=== PATIENT | female | born 1960 | race Caucasian/White ===

== ENCOUNTER → 2021-12-15 10:21 | Outpatient (BNVA) | payer MEDICARE, OTHER, SELFPAY | PROVIDERS: Referring Provider Family Medicine Adult Medicine; Visit Provider Obstetrics & Gynecology | DX: N89.8 Other specified noninflammatory disorders of vagina (principal) | CPT/HCPCS: 87481; 87512; 87798; 87799 ==

== ENCOUNTER → 2022-03-09 10:34 | Outpatient (BNVA) | payer OTHER, SELFPAY | PROVIDERS: PCP Family Medicine Adult Medicine; Visit Provider Family Medicine Adult Medicine | DX: E78.5 Hyperlipidemia, unspecified (principal); F41.9 Anxiety disorder, unspecified; F32.A Depression, unspecified; Z78.9 Other specified health status; J01.20 Acute ethmoidal sinusitis, unspecified | CPT/HCPCS: 80053; 80061; 83036; 84443; 85025 ==

== ENCOUNTER → 2022-04-26 11:05 | Outpatient (BNVA) | payer OTHER, SELFPAY | PROVIDERS: PCP Family Medicine Adult Medicine; Visit Provider Family Medicine Adult Medicine | DX: R35.0 Frequency of micturition (principal); R32 Unspecified urinary incontinence; F41.9 Anxiety disorder, unspecified; F32.A Depression, unspecified; R73.03 Prediabetes; E78.5 Hyperlipidemia, unspecified; N18.2 Chronic kidney disease, stage 2 (mild) | CPT/HCPCS: 81000 ==

== ENCOUNTER → 2022-05-11 08:15 | Outpatient (BNVA) | payer OTHER, SELFPAY | PROVIDERS: PCP Family Medicine Adult Medicine; Visit Provider Obstetrics & Gynecology | DX: R32 Unspecified urinary incontinence (principal); R63.5 Abnormal weight gain | CPT/HCPCS: 81000; 84443; 87086 ==

== ENCOUNTER → 2022-06-12 08:43 | Outpatient (BNVA) | payer OTHER, SELFPAY | PROVIDERS: PCP Family Medicine Adult Medicine; Visit Provider Obstetrics & Gynecology | DX: R63.5 Abnormal weight gain (principal) | CPT/HCPCS: 84443 ==

== ENCOUNTER 2022-06-15 09:13 | Outpatient (CLI) | payer MEDICARE, SELFPAY ==
--- NOTE | 2022-06-15 09:42 | MR_ITS ---
WS: [id number] MRI BRAIN WITH HIGH-RESOLUTION IMAGING THROUGH THE INTERNAL AUDITORY CANALS WITHOUT AND WITH CONTRAST HISTORY: SENSORINEURAL HEARING LOSS, BILATERAL COMPARISON: None available. TECHNIQUE: Multiplanar, multisequence imaging is performed through the brain. Additional 3 mm imaging performed in multiple planes through the internal auditory canal. Postcontrast imaging with 15 ml's of ProHance. No acute intracranial hemorrhage, midline shift, edema or mass effect. No significant atrophy and no prior infarct. Perivascular space along the inferior LEFT basal ganglia . No prior infarct. No hemorrhage. Ventricles and extra-axial spaces are normal. No inferior displacement of cerebellar tonsils. Clivus and pituitary gland are normal. Internal and external auditory canals: Unremarkable. Cranial nerves VII and VIII complexes: Unremarkable. No enhancement or mass. Cerebellopontine angles: Normal. Paranasal sinuses: Normal. Mastoid air cells: Normal. Calvarium and scalp: Normal. Visualized [place] and dural venous sinuses demonstrate no abnormality. MR/MR iac's wo/w con* [id number] IMPRESSION: Normal MRI IACs.
== END 2022-06-15 09:14 | disposition home or self-care (01) ==
PROVIDERS: PCP Family Medicine Adult Medicine; Visit Provider Otolaryngology
DX: H90.3 Sensorineural hearing loss, bilateral (principal); J31.0 Chronic rhinitis
CPT/HCPCS: 70553; A9579

== ENCOUNTER 2022-09-22 14:49 | Outpatient (CLI) | payer MEDICARE, MEDICAID, SELFPAY ==
--- NOTE | 2022-09-22 14:53 | MM_ITS ---
WS: [id number] BILATERAL 3D TOMOSYNTHESIS DIGITAL SCREENING MAMMOGRAPHY WITH CAD CLINICAL INFORMATION: SCREEN HISTORY: Screening mammogram. No current complaints. COMPARISON: 2020 TECHNIQUE: Bilateral CC and MLO views. FINDINGS: Scattered fibroglandular densities bilaterally. No suspicious focal mass, asymmetry, calcifications, or architectural distortion. No evidence of malignancy. Lucent centered calcification RIGHT breast. V ascular calcification. A few incidental punctate calcifications. MM/[place] [id number] IMPRESSION: BI-RADS: 2-Benign FOLLOW UP: 1 Year Follow-up Recommend return to annual screening mammography.
== END 2022-09-22 14:50 | disposition home or self-care (01) ==
LOC: RAD 14:49
PROVIDERS: Visit Provider Family Medicine Adult Medicine
DX: Z12.31 Encounter for screening mammogram for malignant neoplasm of breast (principal)
CPT/HCPCS: 77063; 77067

== ENCOUNTER 2022-12-18 06:58 | Outpatient (CLI) | payer MEDICARE, SELFPAY ==
--- NOTE | 2022-12-18 | CT_ITS ---
WS: [id number] CT NECK TECHNIQUE: Contrast-enhanced CT of the neck with coronal and sagittal reformatted images. CLINICAL INFORMATION: LOCALIZED SWELLING, MASS, LUMP COMPARISON: None. DLP: 180.[address] scans at [facility] use at least one of these dose optimization techniques: automated e xposure control; mA and/or kV adjustment per patient size (includes targeted exams where dose is matc hed to clinical indication); or iterative reconstruction. FINDINGS: Palpable marker overlying tail RIGHT parotid gland. Deep to the palpable marker there is a heterogene ously enhancing lobulated intraparotid lesion measuring 2.7 x 1.9 cm with lobulated peripheral and in ternal septal enhancement. Findings suspicious for parotid neoplasm. Recommend ENT consultation. LEFT parotid gland is normal. Tongue base is normal in appearance. Dental artifact degrades some imag es tongue base. Normal parapharyngeal fat. Normal submandibular glands. Normal posterior nasopharynx. Normal parapharyngeal fat. No evidence of supraglottic or glottic mass. Ballooning of the LEFT laryn geal ventricle suspicious for vocal cord paralysis. Subglottic airway is normal. Thyroid gland is normal. Lung apices are well aerated. Mild spondylitic changes cervical spine. No ce rvical lymphadenopathy. CT/CT neck w con* [id number] IMPRESSION: 1. Multilobulated lesion deep to the palpable marker involving the tail RIGHT parotid gland measuring 1.9 x 2.7 cm suspicious for parotid neoplasm. Recommend further evaluation with ENT consultation. 2. Ballooning of the LEFT laryngeal ventricle suspicious for cord paralysis. 3. Otherwise no evidence of supraglottic or glottic mass. 4. No cervical lymphadenopathy. A few elongated RIGHT cervical lymph nodes teresita suring 6 to 7 mm in short axis dimension.
[2022-12-18] MEDS: iohexol 350 mg/mL 500 mL Btl (per mL) IV (09:50)
== END 2022-12-18 06:59 | disposition home or self-care (01) ==
LOC: RAD 06:59
PROVIDERS: Visit Provider Otolaryngology
DX: R22.1 Localized swelling, mass and lump, neck (principal); D37.030 Neoplasm of uncertain behavior of the parotid salivary glands
CPT/HCPCS: 70491; Q9967

== ENCOUNTER 2023-01-23 14:23 | Outpatient (CLI) | payer MEDICARE, MEDICAID, SELFPAY ==
--- NOTE | 2023-01-23 15:02 | ECG_ITS ---
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 Measurements Intervals [place] Rate: 85 P: 54 NC: 153 QRS: 19 QRSD: 88 T: 58 QT: 335 QTc: 398 Interpretive Statements SINUS RHYTHM POSSIBLE LEFT ATRIAL ENLARGEMENT [-0.1mV P-WAVE IN V1/V2] NONSPECIFIC T-WAVE ABNORMALITY No previous ECG available for comparison Electronically Signed On 01-24-2023 16:18:28 [employer]OCK ASSOCIATE by Neel Boyd M.D. [email or web address]
[2023-01-23 16:37] LABS: Basophils # 0.1 10^3/uL (0.0-0.1); Eosinophils # 0.6 10^3/uL (0.0-0.8); Eosinophils % 9.4 %; Hematocrit 40.8 % (37.0-47.0); Hemoglobin 13.4 g/dL (11.5-15.3); Lymphocytes # 2.6 10^3/uL (0.8-4.8); Lymphocytes % 40.7 %; Mean Corpuscular HGB Conc 32.8 g/dL (30.0-36.0); Mean Corpuscular Hemoglobin 30.5 pg (28.0-34.0); Mean Corpuscular Volume 92.7 fl (81-99); Monocytes # 0.6 10^3/uL (0.2-0.9); Monocytes % 9.3 %; Neutrophils # 2.46 10^3/uL (1.8-7.7); Neutrophils % 39.3 %; Nucleated Red Blood Cells % 0 %; Platelet Count 423 10^3/cmm (130-400); Red Cell Distribution Width 14.3 % (12.1-15.1); White Blood Count 6.3 10^3/uL (4.0-10.0)
[2023-01-23 17:34] LABS: Blood Urea Nitrogen 12 mg/dL (8-23); Calcium 9.3 mg/dL (8.5-10.5); Carbon Dioxide 26 mmol/L (22-29); Chloride 101 mmol/L (98-107); Glomerular Filtration Rate 63.7 mL/min (90-130); Glucose 97 mg/dL (65-115); Osmolality Calculated 288 mOsm/kg (285-295); Sodium 139 mmol/L (136-145)
== END 2023-01-23 14:24 | disposition home or self-care (01) ==
PROVIDERS: Visit Provider Specialist
DX: Z01.810 Encounter for preprocedural cardiovascular examination (principal)
CPT/HCPCS: 36415; 80048; 85025; 93005

== ENCOUNTER 2023-02-06 13:02 | Observation (INO) | payer MEDICARE, SELFPAY ==
[2023-02-05 12:04] VITALS: BMI 26.2
[2023-02-06] VITALS (16 sets, daily range): BP systolic 105–133; BP diastolic 57–78; PULSE 73–81; RESP 13–20; TEMP 36.1–36.8; O2SAT 94–99
[2023-02-06] MEDS: sodium chloride 0.9% 1,000 ML 30 ML IV (07:35)
[2023-02-06] MEDS: HYDROmorphone 1 mg/mL INJ 1 mL 0.5 MG IVP (07:52)
--- NOTE | 2023-02-06 08:17 | ANES.PREANE2 ---
Pre-Anesthetic Assessment Height/Weight: Height 1.78 m Weight 83.007 kg Temp Pulse Resp BP Pulse Ox O2 Del Method 97.2 F L 81 16 133/60 97 02/06/23 07:30 02/06/23 07:30 02/06/23 07:52 02/06/23 07:30 02/06/23 07:52 02/06/23 07:30 Operation Date: 02/06/23 08:40 Proposed Procedures p Parotidectomy [id number],R22.1(Right) - Nick Sevilla MD s PossibleNeck Dissection(Right) - Nick Sevilla MD s possible abdominal fat graft harvest(Right) - Nick Sevilla MD Familial anesthetic complications: none Was Beta Saira taken within 24 hours: N/A Was Clonidine taken within 24 hours: N/A Last intake: Intake Last Liquid Date 02/05/23 Last Liquid Time 23:00 Last Solid Date 02/05/23 Last Solid Time 23:00 Social No alcohol and No tobacco Exam alert, oriented x 3, clear to auscultation bilaterally and regular rate & rhythm Airway Submandibular: within normal limits Cervical ROM: within normal limits Mallampati: Class II Dentition: full Chronic Renal Insufficiency GI Gastroesophageal Reflux Disease Metabolic Hyperlipidemia and Thyroid Disease [facility] [place] Fibromyalgia and Lower Back Pain Neuropsych Anxiety, Depression and Headache Anesthetic Plan ASA status: 3 Anesthesia: General Medications/Allergies Home Medications Medication Instructions Recorded Confirmed Last Taken Type estradiol 1 mg tablet 1 mg PO DAILY Post menopausal 03/10/22 02/06/23 02/05/23 Rx symptoms #90 tabs ibuprofen 800 mg tablet 800 mg PO TID PRN body pain #270 03/10/22 02/06/23 01/28/23 Rx tabs melatonin 10 mg tablet 15 mg PO DAILY sleep #90 tabs 03/10/22 02/06/23 02/04/23 Rx levothyroxine 75 mcg capsule 75 mcg PO DAILY #90 caps 05/11/22 02/06/23 02/06/23 05:30 Rx mirabegron 25 mg tablet,extended 25 mg PO DAILY #30 tabs 08/23/22 02/06/23 02/05/23 Rx release 24 hr (Myrbetriq) bupropion HCl 300 mg 24 hr tablet, 300 mg PO [facility] #90 09/19/22 02/06/23 02/06/23 05:30 Rx extended release tabs gabapentin 800 mg tablet 800 mg PO QID Chronic body pain 09/19/22 02/06/23 02/06/23 05:30 Rx #360 tabs omeprazole 20 mg capsule,delayed 20 mg PO DAILY chronic GERD #90 09/19/22 02/06/23 02/05/23 Rx release caps venlafaxine 75 mg capsule,extended 75 mg PO BID Mental Health #180 09/19/22 02/06/23 02/06/23 05:30 Rx release 24 hr caps naltrexone 50 mg tablet 50 mg PO DAILY Opioid prevention 10/23/22 02/06/23 02/05/23 Rx 90 days #90 tabs progesterone micronized 100 mg 100 mg PO QAM post menopausal 90 01/01/23 02/06/23 02/05/23 Rx capsule days #90 caps lamotrigine 100 mg tablet 100 mg PO BID Mental Health 02/05/23 02/06/23 02/05/23 History (Lamictal) lubiprostone 24 mcg capsule 24 mcg PO BID 02/05/23 02/06/23 02/05/23 History Allergies Allergy/AdvReac Type Severity Reaction Status Date / Time Iodinated Contrast Media Allergy ALGY-Rash Verified 02/06/23 07:24 Current Medications Generic Name Dose Route Start Last Admin Trade Name Freq PRN Reason Stop Dose Admin Hydromorphone HCl 0.5 mg 02/06/23 07:09 02/06/23 07:52 Hydromorphone 1 Mg/Ml Inj 1 Ml IVP 0.5 mg ONCE PRN Administration For preop pain/anxiety Sodium Chloride 1,000 mls @ 30 mls/hr 02/06/23 07:15 02/06/23 07:35 Sodium Chloride 0.9% IV 02/07/23 07:14 30 mls/hr .Q24H TABITHA Administration PFSH Anesthesia Medical History (Updated 12/05/22 @ 16:17 by Jam Zeng MD) Allergic rhinitis due to allergen Anxiety and depression Chronic GERD CKD (chronic kidney disease), stage II COVID-19 vaccine administered Covid vaccine on 02/14/2021 and second on 03/14/2021 Fibromyalgia Hx of migraines Hyperlipidemia Hypothyroidism IBS (irritable bowel syndrome) Menopause Prediabetes PTSD (post-traumatic stress disorder) Urinary incontinence Surgical History History of endometrial ablation Hx of tubal ligation Family History Mother Cancer colon Grandmother Cancer Maternal--colon Stroke Paternal Breast cancer Paternal Father Cancer colon CAD (coronary artery disease) Diabetes Daughter No problems noted. Family/Other Breast cancer Paternal Aunt Denies family history of Clotting disorder Hyperlipidemia Chronic kidney disease (CKD) Bleeding disorder Hypertension Thyroid disease Social History Smoking and tobacco status: never smoked Alcohol intake: never Marital status: Single Current occupational status: disabled Data Anesthesia Cardiac Studies: No Data to Display
--- NOTE | 2023-02-06 08:57 | W.PM.OPSUD ---
Surgery/Procedure H&P Update DATE OF PROCEDURE: February 06, 2023 DATE H&P PERFORMED: 01/22/23 PRIMARY INDICATION FOR PROCEDURE: Right parotid mass PLANNED PROCEDURE: Operation Date: 02/06/23 08:40 Proposed Procedures p Parotidectomy [id number],R22.1(Right) - Nick Sevilla MD s PossibleNeck Dissection(Right) - Nick Sevilla MD s possible abdominal fat graft harvest(Right) - Nick Sevilla MD
--- NOTE | 2023-02-06 09:02 | ANES.PREANE2 ---
Pre-Anesthetic Assessment Height/Weight: Height 1.78 m Weight 83.007 kg Temp Pulse Resp BP Pulse Ox O2 Del Method 97.2 F L 81 16 133/60 97 02/06/23 07:30 02/06/23 07:30 02/06/23 07:52 02/06/23 07:30 02/06/23 07:52 02/06/23 07:30 Operation Date: 02/06/23 08:40 Proposed Procedures p Parotidectomy 54878,[id number],R22.1(Right) - Nick Sevilla MD s PossibleNeck Dissection(Right) - Nick Sevilla MD s possible abdominal fat graft harvest(Right) - Nick Sevilla MD Familial anesthetic complications: none Was Beta Saira taken within 24 hours: N/A Was Clonidine taken within 24 hours: N/A Last intake: Intake Last Liquid Date 02/05/23 Last Liquid Time 23:00 Last Solid Date 02/05/23 Last Solid Time 23:00 Social No alcohol and No tobacco Exam alert, oriented x 3, clear to auscultation bilaterally and regular rate & rhythm Airway Submandibular: within normal limits Cervical ROM: within normal limits Mallampati: Class II Dentition: full GI Gastroesophageal Reflux Disease Metabolic Thyroid Disease [facility] [place] Fibromyalgia and Lower Back Pain Neuropsych Anxiety and Depression Medications/Allergies Home Medications Medication Instructions Recorded Confirmed Last Taken Type estradiol 1 mg tablet 1 mg PO DAILY Post menopausal 03/10/22 02/06/23 02/05/23 Rx symptoms #90 tabs ibuprofen 800 mg tablet 800 mg PO TID PRN body pain #270 03/10/22 02/06/23 01/28/23 Rx tabs melatonin 10 mg tablet 15 mg PO DAILY sleep #90 tabs 03/10/22 02/06/23 02/04/23 Rx levothyroxine 75 mcg capsule 75 mcg PO DAILY #90 caps 05/11/22 02/06/23 02/06/23 05:30 Rx mirabegron 25 mg tablet,extended 25 mg PO DAILY #30 tabs 08/23/22 02/06/23 02/05/23 Rx release 24 hr (Myrbetriq) bupropion HCl 300 mg 24 hr tablet, 300 mg PO [facility] Mental health #90 09/19/22 02/06/23 02/06/23 05:30 Rx extended release tabs gabapentin 800 mg tablet 800 mg PO QID Chronic body pain 09/19/22 02/06/23 02/06/23 05:30 Rx #360 tabs omeprazole 20 mg capsule,delayed 20 mg PO DAILY chronic GERD #90 09/19/22 02/06/23 02/05/23 Rx release caps venlafaxine 75 mg capsule,extended 75 mg PO BID Mental Health #180 09/19/22 02/06/23 02/06/23 05:30 Rx release 24 hr caps naltrexone 50 mg tablet 50 mg PO DAILY Opioid prevention 10/23/22 02/06/23 02/05/23 Rx 90 days #90 tabs progesterone micronized 100 mg 100 mg PO QAM post menopausal 90 01/01/23 02/06/23 02/05/23 Rx capsule days #90 caps lamotrigine 100 mg tablet 100 mg PO BID Mental Health 02/05/23 02/06/23 02/05/23 History (Lamictal) lubiprostone 24 mcg capsule 24 mcg PO BID 02/05/23 02/06/23 02/05/23 History Allergies Allergy/AdvReac Type Severity Reaction Status Date / Time Iodinated Contrast Media Allergy ALGY-Rash Verified 02/06/23 07:24 Current Medications Generic Name Dose Route Start Last Admin Trade Name Freq PRN Reason Stop Dose Admin Hydromorphone HCl 0.5 mg 02/06/23 07:09 02/06/23 07:52 Hydromorphone 1 Mg/Ml Inj 1 Ml IVP 0.5 mg ONCE PRN Administration For preop pain/anxiety Sodium Chloride 1,000 mls @ 30 mls/hr 02/06/23 07:15 02/06/23 07:35 Sodium Chloride 0.9% IV 02/07/23 07:14 30 mls/hr .Q24H TABITHA Administration PFSH Anesthesia Medical History (Updated 12/05/22 @ 16:17 by Jam Zeng MD) Allergic rhinitis due to allergen Anxiety and depression Chronic GERD CKD (chronic kidney disease), stage II COVID-19 vaccine administered Covid vaccine on 02/14/2021 and second on 03/14/2021 Fibromyalgia Hx of migraines Hyperlipidemia Hypothyroidism IBS (irritable bowel syndrome) Menopause Prediabetes PTSD (post-traumatic stress disorder) Urinary incontinence Surgical History History of endometrial ablation Hx of tubal ligation Family History Mother Cancer colon Grandmother Cancer Maternal--colon Stroke Paternal Breast cancer Paternal Father Cancer colon CAD (coronary artery disease) Diabetes Daughter No problems noted. Family/Other Breast cancer Paternal Aunt Denies family history of Clotting disorder Hyperlipidemia Chronic kidney disease (CKD) Bleeding disorder Hypertension Thyroid disease Social History Smoking and tobacco status: never smoked Alcohol intake: never Marital status: Single Current occupational status: disabled Data Anesthesia Cardiac Studies: No Data to Display
[2023-02-06] MEDS: ceFAZolin 2,000 MG in sodium chloride 0.9% (plus) 50 ML 100 MG IV ×2 (09:10→17:06)
[2023-02-06] MEDS: lidocaine-epi 1% 20 mL INJ 7 ML INJECTION (09:55)
[2023-02-06] MEDS: EPINEPHrine 1 mg/mL INJ 2 MG XX (10:03)
[2023-02-06] MEDS: ceFAZolin 1,000 mg SDV 1000 MG (10:03)
[2023-02-06] MEDS: fluorescein 1 mg Strip XX ×2 (10:46→11:16)
[2023-02-06] MEDS: thrombin 5,000 unit SDV 5000 UNIT XX (10:49)
[2023-02-06] MEDS: EPINEPHrine 1 mg/mL INJ XX (11:16)
[2023-02-06] MEDS: neomycin-poly-bacitracin oint 28 gm 1 APPLIC TOPICAL (11:53)
--- NOTE | 2023-02-06 12:43 | PM.OP ---
Operative Report Date of procedure: February 06, 2023 Pre-op diagnosis: Right parotid mass Post-op diagnosis: same Post-op findings: Right tail of parotid mass Intact facial nerve O/W Normal right parotid gland Procedure done: Right superficial parotidectomy Implants: None Specimens removed/disposition: Right parotid mass Pathology: Right parotid mass Surgeon: Nick Sevilla Inspector Heating And Refrigeration: Janet Shepard Anesthesia: General Estimated blood loss (mL): 50 IV fluids (mL): 1,800 Urine output (mL): 300 Complications: None Findings: Right tail of parotid mass Condition: stable Disposition: PACU Brief History: 62 yo wf with a h/o a right parotid mass who desires surgical therapy. Procedure: The patient was identified in preop holding area and was taken to the operating where she was placed on the table in the supine position. Anesthesia was obtained with general endotracheal anesthesia and the table was turned 180 degrees. The patient's head was turned to the left exposing the right face to the operating surgeon. At this point a modified Ashwin incision was drawn out on the patient and was injected with local anesthesia. The Nirvana nerve monitoring system was placed on the patient and the patient was then prepped and draped in the usual sterile fashion. The incision was made with a 15 blade and was carried down through subcutaneous tissues with blunt dissection. A subcutaneous flap was developed anteriorly and then a dissection began on a broad front at the anterior border of the right sternocleidomastoid muscle and the right preauricular area using bipolar cautery for hemostasis. The dissection proceeded into the deep tissues with the deepest point of the dissection at the tympanomastoid suture line. As the dissection proceeded into the deeper tissues with the Neurvana nerve monitoring hemostat, the facial nerve was identified readily and was preserved and protected and a posterior branch of the great auricular nerve was also protected and preserved. The right facial nerve was then dissected out to the pes anserinus and was dissected off of the facial nerve over the lower lower jayant of the nerve. As the dissection proceeded the branches of the facial nerve were protected and the superficial parotid along with the tail of parotid mass were removed with a combination of blunt dissection and bipolar cautery. At this point the wound was inspected for hemostasis which was found to be adequate. The mass was sent for intraoperative frozen section analysis which came back as benign. At this point the wound was reinspected for hemostasis which was found to be adequate. The wound was then irrigated with warm saline. The right facial nerve was then covered with Gelfoam soaked in thrombin and a drain was placed in the wound. At this point the cut edge of the parotid was imbricated to the anterior aspect of the sternocleidomastoid muscle. At this point the wound was closed with interrupted 4 Monocryl sutures and subcu and a running 5-0 fast-absorbing gut on the skin. The wound was then cleaned and covered with triple antibiotic ointment. At this point the procedure was terminated and control of the patient was returned to anesthesia where she underwent reversal of anesthesia and extubation and was taken to recovery in stable condition. There were no operative or anesthetic complications
--- NOTE | 2023-02-06 14:02 | ANE.PACU2 ---
Inpatient post-anesthesia follow up: Airway intact: Yes Vital signs: Temperature 98.2 F Pulse Rate 74 Respiratory Rate 14 Blood Pressure 115/68 Pulse Oximetry 97 Oxygen Delivery Me thod Room Air Oxygen Flow Rate Fraction of Inspir ed Oxygen Hydration adequate: Yes Nausea and vomiting: No Pain level: 3 Mental status: Baseline
[2023-02-06] MEDS: lactated ringers 1,000 ML 100 ML IV (15:23)
[2023-02-06] MEDS: venlafaxine ER (24HR) 75 mg Capsule PO (17:06)
[2023-02-06] MEDS: gabapentin 400 mg Capsule 800 MG PO ×2 (17:06→20:01)
[2023-02-06] MEDS: docusate sodium 100 mg Capsule PO (17:06)
[2023-02-06] MEDS: lamoTRIgine 100 mg Tablet PO (17:06)
[2023-02-06] MEDS: acetaminophen 650 mg/20.3 mL UDC PO (17:06)
--- NOTE | 2023-02-06 17:48 | P.PN_ITS ---
Subjective Subjective: The patient is a 62 yo wf who is night of surgery s/p right superficial parotidectomy. The patient reports that she is doing well and has no c/o. Medications: Reviewed: Yes Vitals/I&O/Wt Last Vital Signs Temp 97.8 F 02/06/23 16:28 Pulse 78 02/06/23 16:28 Resp 16 02/06/23 16:28 BP 128/74 02/06/23 16:28 Pulse Ox 95 02/06/23 16:28 O2 Del Method 02/06/23 16:28 02/06/23 02/06/23 02/06/23 06:59 14:59 22:59 Intake Total 2750 / 2750 Output Total 650 / 650 Balance 2100 / 2100 Weight last 48 hrs Weight 83.007 kg Physical Exam Const: COMMON NORMALS: no acute distress, average body habitus, patient orie nted x3, healthy appearing and alert GENERAL APPEARANCE: cooperative, comfortable and well kempt HENMT: COMMON NORMALS: normocephalic, atraumatic, external ears normal and Normal external nose present HEAD & SCALP: normocephalic and atraumatic FACE & SINUS: face symmetric and other (The right facial wound is intact without erythema or swelling. ) NOSE: Normal external nose present EXTERNAL EAR: Yes external ears normal Eye: COMMON NORMALS: Equal, round and reactive pupils present and conjunctivae normal CONJUNCTIVA: Yes conjunctivae normal PUPIL: Yes Equal, round and reactive pupils present Neck/C-Spine: COMMON NORMALS: full ROM and supple Resp: COMMON NORMALS: normal respiratory effort, No retractions, No use of accessory muscles and clear to auscultation bilaterally AUSCULTATION: clear to auscultation bilaterally Cardio: COMMON NORMALS: regular rate, regular rhythm and No murmurs present (Cardio) RATE: regular rate RHYTHM: regular rhythm GI: COMMON NORMALS: Normal to inspection, nondistended, normoactive bowel sounds present Extremity: COMMON NORMALS: normal to inspection Neuro: COMMON NORMALS: patient oriented x3 SENSORIUM/ORIENTATION: Yes alert Psych: APPEARANCE: Yes well kempt Urinary Catheter Management: Young: Cath Placed During This Visit: yes, but has since been removed by the nurse Urinary Catheter Date of Insertion: 02/06/23 Urinary Catheter Time of Insertion: 09:40 Date Urinary Catheter Removed: 02/06/23 Time Urinary Catheter Discontinued: 12:34 A&P Assessment and plan (1) Parotid mass: Impression: 62 yo wf who is night of surgery s/p right superficial parotidectomy who is doing well. The patient has normal right facial nerve function, and her frozen path was benign Plan: - Overnight observation - Closed suction drainage - Tylenol only for pain at the patient's request - I anticipate d/c in the am if the patient continues to do well Attestations Medical Necessity Statement*: The patient requires overnight observation of her wound and airway Coding Level of Care Code Acute Code for Chg Fwd Diagnoses Parotid mass K11.8
[2023-02-06] MEDS: famotidine 20 mg/2 mL INJ IVP (20:01)
[2023-02-07] VITALS: BP 119/64; PULSE 75; RESP 18; TEMP 36.7; O2SAT 96
[2023-02-07] MEDS: ceFAZolin 2,000 MG in sodium chloride 0.9% (plus) 50 ML 100 MG IV (00:31)
[2023-02-07] MEDS: lactated ringers 1,000 ML 100 ML IV (00:32)
[2023-02-07 04:15] VITALS: BP 112/64; PULSE 75; RESP 16; TEMP 36.6; O2SAT 97
[2023-02-07] MEDS: buPROPion XL (24 HR) 300 mg Tablet PO (05:16)
--- NOTE | 2023-02-07 05:16 | PM.PN ---
Subjective Subjective: 62 yo wf who is POD #1 s/p right superficial parotidectomy. The patient reports that she is doing well. Her pain is well managed with po Tylenol. The patient is taking po well, and is o/w without c/o. Medications: Reviewed: Yes Vitals/I&O/Wt Last Vital Signs Temp 97.8 F 02/07/23 04:15 Pulse 75 02/07/23 04:15 Resp 16 02/07/23 04:15 BP 112/64 02/07/23 04:15 Pulse Ox 97 02/07/23 04:15 O2 Del Method 02/07/23 04:15 02/06/23 02/06/23 02/07/23 14:59 22:59 06:59 Intake Total 2750 / 2750 290 / 3040 965 / 4005 Output Total 650 / 650 20 / 670 Balance 2100 / 2100 270 / 2370 965 / 3335 Weight last 48 hrs Weight 83.007 kg Physical Exam Const: COMMON NORMALS: no acute distress, patient oriented x3 and alert GENERAL APPEARANCE: cooperative HENMT: COMMON NORMALS: normocephalic, atraumatic and Normal external nose present HEAD & SCALP: normocephalic and atraumatic FACE & SINUS: other (The right neck wound is intact and without swelling.) NOSE: Normal external nose present Eye: COMMON NORMALS: Equal, round and reactive pupils present, conjunctivae normal and no scleral icterus CONJUNCTIVA: Yes conjunctivae normal PUPIL: Yes Equal, round and reactive pupils present Neck/C-Spine: COMMON NORMALS: full ROM, no lymphadenopathy and supple GENERAL: Yes trachea midline Resp: COMMON NORMALS: No retractions, No use of accessory muscles and clear to auscultation bilaterally AUSCULTATION: clear to auscultation bilaterally Cardio: COMMON NORMALS: regular rate, regular rhythm and No murmurs present (Cardio) RATE: regular rate RHYTHM: regular rhythm GI: COMMON NORMALS: Normal to inspection, nondistended, normoactive bowel sounds present Extremity: COMMON NORMALS: normal to inspection Neuro: COMMON NORMALS: patient oriented x3 and CN's II-XII intact bilaterally SENSORIUM/ORIENTATION: Yes alert CRANIAL NERVES: Yes CN VII (facial) Urinary Catheter Management: Young: Cath Placed During This Visit: yes, but has since been removed by the nurse Urinary Catheter Date of Insertion: 02/06/23 Urinary Catheter Time of Insertion: 09:40 Date Urinary Catheter Removed: 02/06/23 Time Urinary Catheter Discontinued: 12:34 A&P Assessment and plan (1) Parotid mass: Impression: POD #1 s/p right superficial parotidectomy doing well with benign frozen section. Plan: - D/C to home - Continue closed suction drainage at home - Apply ISAÍAS to right facial wound TID - Keep wound dry for 48 hours post op - Wound care instructions given - F/U in Dr. Seivlla's office on 02/09/23 @ 13:00 - Contact Dr. Sevilla for any problems - Regular diet - Resume all preop meds - The patient wants to take OTC Tylenol only for pain Attestations Medical Necessity Statement*: The patient required overnight observation of her wound and airway. Coding Level of Care Code Acute Code for Chg Fwd Diagnoses Parotid mass K11.8
[2023-02-07] MEDS: acetaminophen 650 mg/20.3 mL UDC PO (05:20)
[2023-02-07] MEDS: famotidine 20 mg/2 mL INJ IVP (07:41)
[2023-02-07] MEDS: gabapentin 400 mg Capsule 800 MG PO (07:51)
[2023-02-07] MEDS: levothyroxine 75 mcg Tablet PO (07:51)
[2023-02-07] MEDS: docusate sodium 100 mg Capsule PO (07:51)
[2023-02-07] MEDS: venlafaxine ER (24HR) 75 mg Capsule PO (07:51)
[2023-02-07] MEDS: lamoTRIgine 100 mg Tablet PO (07:52)
[2023-02-07 08:00] VITALS: BP 143/75; PULSE 74; RESP 16; TEMP 36.5; O2SAT 97
== END 2023-02-07 10:17 | disposition home or self-care (01) ==
LOC: MEDSURG 13:03
PROVIDERS: Admitting Provider Specialist; Visit Provider Specialist
PROC: (CPT 42410; principal; 2023-02-06 08:30)
DX: D11.0 Benign neoplasm of parotid gland (principal); K11.8 Other diseases of salivary glands; K21.9 Gastro-esophageal reflux disease without esophagitis; E78.5 Hyperlipidemia, unspecified; M79.7 Fibromyalgia; E03.9 Hypothyroidism, unspecified; N18.9 Chronic kidney disease, unspecified
CPT/HCPCS: 42410; 12345; 51702; 88307; 88331; 94664; G0378; J0131; J0171; J0330; J0690; J1100; J1170; J2370; J2405; J2704; J3010; J3490; J7030; J7120

== ENCOUNTER → 2023-05-07 12:01 | Outpatient (BNVA) | payer MEDICARE, SELFPAY | PROVIDERS: PCP Family Medicine Adult Medicine; Visit Provider Registered Nurse Neonatal Intensive Care | DX: M54.50 Low back pain, unspecified (principal); M54.30 Sciatica, unspecified side; K21.9 Gastro-esophageal reflux disease without esophagitis | CPT/HCPCS: 81000 ==

== ENCOUNTER → 2023-05-17 07:47 | Outpatient (BNVA) | payer MEDICARE, SELFPAY | PROVIDERS: PCP Family Medicine Adult Medicine; Referring Provider Family Medicine Adult Medicine; Visit Provider Nurse Practitioner Family | DX: L85.3 Xerosis cutis (principal); D22.62 Melanocytic nevi of left upper limb, including shoulder; L81.4 Other melanin hyperpigmentation; Z12.83 Encounter for screening for malignant neoplasm of skin; L57.8 Other skin changes due to chronic exposure to nonionizing radiation; L57.0 Actinic keratosis; L23.7 Allergic contact dermatitis due to plants, except food; S80.921A Unspecified superficial injury of right lower leg, initial encounter; S60.012A Contusion of left thumb without damage to nail, initial encounter; X58.XXXA Exposure to other specified factors, initial encounter | CPT/HCPCS: 17000; 17003; 99203 ==

== ENCOUNTER → 2023-08-03 09:23 | Outpatient (BNVA) | payer MEDICARE, SELFPAY | PROVIDERS: PCP Family Medicine; Visit Provider Surgery | DX: K59.01 Slow transit constipation | CPT/HCPCS: 99204 ==

== ENCOUNTER 2023-09-24 10:52 | Outpatient (CLI) | payer MEDICARE, SELFPAY ==
--- NOTE | 2023-09-24 10:56 | MM_ITS ---
WS: [id number] BILATERAL SCREENING DIGITAL TOMOSYNTHESIS MAMMOGRAM WITH CAD HISTORY: Z12.39 - Encounter for other screening for malignant neop... COMPARISON: 09/22/2022 and 08/31/2021 Bilateral CC and MLO views with tomosynthesis and synthetic mammography submitted. Computer aided det ection analyzed. Breast composition: There are scattered areas of fibroglandular density. No suspicious masses, microc alcifications or architectural distortion. IMPRESSION: MM/[place] [id number] BI-RADS: 1-Negative FOLLOW UP: 1 Year Follow-up
== END 2023-09-24 10:53 | disposition home or self-care (01) ==
LOC: RAD 10:52
PROVIDERS: PCP Family Medicine; Visit Provider Obstetrics & Gynecology
DX: Z12.31 Encounter for screening mammogram for malignant neoplasm of breast (principal)
CPT/HCPCS: 77063; 77067

== ENCOUNTER 2023-11-08 06:04 | Day surgery (SDC) | payer MEDICARE, SELFPAY ==
--- NOTE | 2023-11-08 06:12 | W.PM.OPSFHP ---
Same Day Surgery H&P Indication for Procedure/HPI DATE OF PROCEDURE: November 08, 2023 CHIEF COMPLAINT/INDICATIONFOR SURGICAL PROCEDURE: need for screening colonoscopy PREOP DIAGNOSIS: need for screening colonoscopy PLANNED PROCEDURE: Operation Date: 11/08/23 07:00 Proposed Procedures p Colonoscopy 09176,Z12.11(Not Applicable) - True Sharma MD Medications/Allergies* Home Medications Medication Instructions Recorded Confirmed Type trazodone 50 mg tablet 50 mg PO QPM 08/03/23 11/07/23 History lamotrigine 100 mg tablet 100 mg PO BID 11/07/23 11/07/23 History mirabegron 25 mg tablet,extended 25 mg PO DAILY 11/07/23 11/07/23 History release 24 hr (Myrbetriq) Allergies/Adverse Reactions Allergy/AdvReac Type Severity Reaction Status Date / Time Iodinated Contrast Media Allergy ALGY-Rash Verified 11/07/23 09:28 Pertinent History/Comorbid Conditions* Medical History (Updated 08/03/23 @ 12:18 by True Sharma MD) Health care maintenance Cyst of right parotid gland Hypothyroidism Hyperlipidemia Urinary incontinence Allergic rhinitis due to allergen CKD (chronic kidney disease), stage II Prediabetes COVID-19 vaccine administered Covid vaccine on 02/14/2021 and second on 03/14/2021 Chronic GERD Anxiety and depression Fibromyalgia PTSD (post-traumatic stress disorder) IBS (irritable bowel syndrome) Hx of migraines Menopause Surgical History (Updated 04/26/22 @ 17:25 by Jam Zeng MD) Hx of tubal ligation History of endometrial ablation Family History (Updated 12/15/21 @ 09:31 by Ivanna Fair LPN) Diabetes Father CAD (coronary artery disease) Father Breast cancer Grandmother Paternal Family/Other Paternal Aunt Cancer Mother colon Grandmother Maternal--colon Father colon Stroke Grandmother Paternal Denies family history of Clotting disorder Hyperlipidemia Chronic kidney disease (CKD) Bleeding disorder Hypertension Thyroid disease Social History Substance/Drug Use: never Marital status: Single Pertinent Exam Findings alert, oriented x 3, clear to auscultation bilaterally and regular rate & rhythm Recommendations Surgery/Procedure today Coding Level of Care Code Acute Code for Chg Fwd
[2023-11-08 06:16] VITALS: BP 135/72; PULSE 76; RESP 18; TEMP 36.1; O2SAT 100; BMI 25.8
[2023-11-08] MEDS: sodium chloride 0.9% 1,000 ML 30 ML IV (06:27)
--- NOTE | 2023-11-08 06:52 | ANES.PREANE2 ---
Pre-Anesthetic Assessment Height/Weight: Height 1.78 m Weight 81.647 kg Temp Pulse Resp BP Pulse Ox O2 Del Method 97.0 F L 76 18 135/72 100 Room Air 11/08/23 06:16 11/08/23 06:16 11/08/23 06:16 11/08/23 06:16 11/08/23 06:16 11/08/23 06:16 Preop Diagnosis: need for screening colonoscopy Operation Date: 11/08/23 07:00 Proposed Procedures p Colonoscopy 41346,Z12.11(Not Applicable) - True Sharma MD Familial anesthetic complications: none Was Beta Saira taken within 24 hours: N/A Was Clonidine taken within 24 hours: N/A Last intake: Intake Last Liquid Date 11/07/23 Last Liquid Time 22:00 Last Solid Date 11/04/23 Last Solid Time 18:00 Social No alcohol and No tobacco Exam alert, oriented x 3, clear to auscultation bilaterally and regular rate & rhythm Airway Mallampati: Class I Dentition: full GI Gastroesophageal Reflux Disease Metabolic Thyroid Disease Anesthetic Plan ASA status: 2 Anesthesia: MAC Risk of > 500 ml blood loss (7ml/kg in children): No Medications/Allergies Home Medications Medication Instructions Recorded Confirmed Last Taken Type ibuprofen 800 mg tablet 800 mg PO TID PRN body pain #270 03/10/22 11/08/23 1 Week Ago Rx tabs ~11/01/23 melatonin 10 mg tablet 15 mg (1.5 x 10 mg) PO DAILY sleep 03/10/22 11/07/23 11/07/23 Rx #90 tabs estradiol 1 mg tablet 1 mg PO DAILY Post menopausal 03/28/23 11/07/23 11/07/23 Rx symptoms #90 tabs levothyroxine 75 mcg capsule 75 mcg PO DAILY #90 caps 06/05/23 11/07/23 11/07/23 Rx naltrexone 50 mg tablet 50 mg PO DAILY Opioid prevention 07/06/23 11/07/23 11/07/23 Rx 90 days #90 tabs lactulose 10 gram/15 mL (15 mL) 45 ml PO TID 5 days #675 mL 08/03/23 11/07/23 11/07/23 Rx oral solution peg 3350-electrolytes 236 240 ml PO Q10M #4,000 mL 08/03/23 11/07/23 11/07/23 Rx gram-22.74 gram-6.74 gram-5.86 gram solution (Golytely) trazodone 50 mg tablet 50 mg PO QPM 08/03/23 11/07/23 11/07/23 History progesterone micronized 100 mg 100 mg PO QAM post menopausal 90 09/14/23 11/07/23 11/07/23 Rx capsule days #90 caps bupropion HCl 300 mg 24 hr tablet, 300 mg PO QAM Mental health #90 10/02/23 11/07/23 11/07/23 Rx extended release tabs gabapentin 800 mg tablet 800 mg PO QID Chronic body pain 10/02/23 11/07/23 11/07/23 Rx #360 tabs lubiprostone 24 mcg capsule 24 mcg PO BID #180 caps 10/02/23 11/07/23 11/07/23 Rx omeprazole 20 mg capsule,delayed 20 mg PO DAILY chronic GERD #90 10/02/23 11/07/23 11/07/23 Rx release caps venlafaxine 75 mg capsule,extended 75 mg PO BID Mental Health #180 10/02/23 11/07/23 11/07/23 Rx release 24 hr caps lamotrigine 100 mg tablet 100 mg PO BID 11/07/23 11/07/23 11/07/23 History mirabegron 25 mg tablet,extended 25 mg PO DAILY 11/07/23 11/07/23 11/07/23 History release 24 hr (Myrbetriq) Allergies Allergy/AdvReac Type Severity Reaction Status Date / Time Iodinated Contrast Media Allergy ALGY-Rash Verified 11/07/23 09:28 Current Medications Generic Name Dose Route Start Last Admin Trade Name Freq PRN Reason Stop Dose Admin Sodium Chloride 1,000 mls @ 30 mls/hr 11/08/23 06:15 11/08/23 06:27 Sodium Chloride 0.9% IV 30 mls/hr .Q24H TABITHA Administration PFSH Anesthesia Medical History (Updated 08/03/23 @ 12:18 by True Sharma MD) Health care maintenance Cyst of right parotid gland Hypothyroidism Hyperlipidemia Urinary incontinence Allergic rhinitis due to allergen CKD (chronic kidney disease), stage II Prediabetes COVID-19 vaccine administered Covid vaccine on 02/14/2021 and second on 03/14/2021 Chronic GERD Anxiety and depression Fibromyalgia PTSD (post-traumatic stress disorder) IBS (irritable bowel syndrome) Hx of migraines Menopause Surgical History (Updated 08/03/23 @ 09:32 by Glenis Robles) Hx of tubal ligation History of endometrial ablation Family History Mother Cancer colon Grandmother Cancer Maternal--colon Stroke Paternal Breast cancer Paternal Father Cancer colon CAD (coronary artery disease) Diabetes Daughter No problems noted. Family/Other Breast cancer Paternal Aunt Denies family history of Clotting disorder Hyperlipidemia Chronic kidney disease (CKD) Bleeding disorder Hypertension Thyroid disease Social History Substance/Drug Use: never Marital status: Single Data Anesthesia Cardiac Studies: No Data to Display
[2023-11-08 07:30] VITALS: BP 124/60; PULSE 69; RESP 18; TEMP 36.1; O2SAT 95
[2023-11-08 07:55] VITALS: BP 122/64; PULSE 64; RESP 18; O2SAT 97
--- NOTE | 2023-11-08 13:11 | ANE.PACU2 ---
Inpatient post-anesthesia follow up: Airway intact: Yes Vital signs: Temperature 97 F Pulse Rate 64 Respiratory Rate 18 Blood Pressure 122/64 Pulse Oximetry 97 Oxygen Delivery Me thod Room Air Oxygen Flow Rate Fraction of Inspir ed Oxygen Hydration adequate: Yes Nausea and vomiting: No Pain level: 1 Mental status: Baseline
== END 2023-11-08 08:06 | disposition home or self-care (01) ==
PROVIDERS: PCP Family Medicine; Visit Provider Surgery
PROC: 0DJD8ZZ Inspection of Lower Intestinal Tract, Via Natural or Artificial Opening Endoscopic (ICD-10-PCS; CPT 45378; principal; 2023-11-08 07:00)
DX: Z12.11 Encounter for screening for malignant neoplasm of colon (principal); K21.9 Gastro-esophageal reflux disease without esophagitis; E03.9 Hypothyroidism, unspecified; E78.5 Hyperlipidemia, unspecified; N18.2 Chronic kidney disease, stage 2 (mild); M79.7 Fibromyalgia
CPT/HCPCS: G0121; J2704; J7030

== ENCOUNTER 2024-01-01 12:15 | Observation (INO) | payer MEDICARE, SELFPAY ==
[2023-12-28 13:18] LABS: Basophils % 0.7 %; Eosinophils # 0.1 10^3/uL (0.0-0.8); Eosinophils % 1.4 %; Hematocrit 40.7 % (36-47); Lymphocytes # 1.8 10^3/uL (0.8-4.8); Lymphocytes % 30.3 %; Mean Corpuscular HGB Conc 33.2 g/dL (30-55); Mean Corpuscular Hemoglobin 30.4 pg (27-33); Mean Corpuscular Volume 91.7 fl (85-98); Mean Platelet Volume 8.8 fL (7.4-10.4); Monocytes # 0.3 10^3/uL (0.2-0.9); Monocytes % 4.8 %; Neutrophils # 3.61 10^3/uL (1.8-7.7); Neutrophils % 62.5 %; Nucleated Red Blood Cells % 0 %; Platelet Count 340 10^3/cmm (157-399); Red Blood Count 4.44 10^6/uL (3.85-5.65); Red Cell Distribution Width 14.1 % (12.1-15.1); White Blood Count 5.78 10^3/uL (3.29-11.43)
--- NOTE | 2023-12-28 13:28 | ANES.PREANE2 ---
Pre-Anesthetic Assessment Height/Weight: Height 1.78 m Operation Date: 01/01/24 14:55 Proposed Procedures p Anterior colporrhaphy 30562, Sling 32193 N81.10,R32(Not Applicable) - Moose Keita MD s Sling(Not Applicable) - Moose Keita MD Exam alert, oriented x 3, clear to auscultation bilaterally and regular rate & rhythm Airway Submandibular: Other Mallampati: Class II History/ROS No significant history except as noted Pulmonary None reported CV/HEM None reported Hepatic None reported GI Gastroesophageal Reflux Disease nightly reflux with coughing Metabolic None reported Anesthetic Plan ASA status: 2 Anesthesia: General Other: ETT due to nighttime reflux and coughing. Risk of > 500 ml blood loss (7ml/kg in children): No Medications/Allergies Home Medications Medication Instructions Recorded Confirmed Last Taken Type ibuprofen 800 mg tablet 800 mg PO TID PRN body pain #270 03/10/22 12/28/23 1 Week Ago Rx tabs ~11/01/23 melatonin 10 mg tablet 15 mg (1.5 x 10 mg) PO DAILY sleep 03/10/22 12/28/23 12/27/23 Rx #90 tabs estradiol 1 mg tablet 1 mg PO DAILY Post menopausal 03/28/23 12/28/23 12/28/23 Rx symptoms #90 tabs levothyroxine 75 mcg capsule 75 mcg PO DAILY #90 caps 06/05/23 12/28/23 12/28/23 Rx trazodone 50 mg tablet 50 mg PO QPM 08/03/23 12/28/23 12/27/23 History progesterone micronized 100 mg 100 mg PO QAM post menopausal 90 09/14/23 12/28/23 12/27/23 Rx capsule days #90 caps gabapentin 800 mg tablet 800 mg PO QID Chronic body pain 10/02/23 12/28/23 12/28/23 Rx #360 tabs lubiprostone 24 mcg capsule 24 mcg PO BID #180 caps 10/02/23 12/28/23 12/28/23 Rx omeprazole 20 mg capsule,delayed 20 mg PO DAILY chronic GERD #90 10/02/23 12/28/23 12/28/23 Rx release caps venlafaxine 75 mg capsule,extended 75 mg PO BID Mental Health #180 10/02/23 12/28/23 12/28/23 Rx release 24 hr caps mirabegron 25 mg tablet,extended 25 mg PO DAILY 11/07/23 12/28/23 12/28/23 History release 24 hr (Myrbetriq) bupropion HCl 300 mg 24 hr tablet, 300 mg PO [facility] Mental health 12/28/23 12/28/23 12/28/23 History extended release (Wellbutrin XL) naltrexone 50 mg tablet 25 mg PO BID Opioid prevention 12/28/23 12/28/23 12/28/23 History Allergies Allergy/AdvReac Type Severity Reaction Status Date / Time Iodinated Contrast Media Allergy ALGY-Rash Verified 12/28/23 12:50 [facility] Anesthesia Medical History Health care maintenance Cyst of right parotid gland Hypothyroidism Hyperlipidemia Urinary incontinence Allergic rhinitis due to allergen CKD (chronic kidney disease), stage II Prediabetes COVID-19 vaccine administered Covid vaccine on 02/14/2021 and second on 03/14/2021 Chronic GERD Anxiety and depression Fibromyalgia PTSD (post-traumatic stress disorder) IBS (irritable bowel syndrome) Hx of migraines Menopause Surgical History Hx of tubal ligation History of endometrial ablation Family History Mother Cancer colon Grandmother Cancer Maternal--colon Stroke Paternal Breast cancer Paternal Father Cancer colon CAD (coronary artery disease) Diabetes Daughter No problems noted. Family/Other Breast cancer Paternal Aunt Denies family history of Clotting disorder Hyperlipidemia Chronic kidney disease (CKD) Bleeding disorder Hypertension Thyroid disease Social History Substance/Drug Use: never Marital status: Single Data Anesthesia 12/28/23 13:05 12/28/23 13:05 Short CBC 12/28/23 Range/Units 13:05 WBC 5.78 (3.29-11.43) 10^3/uL Hgb 13.50 (11.27-16.99) g/dL Hct 40.7 (36-47) % MCV 91.7 (85-98) fl Plt Count 340 (157-399) 10^3/cmm Neut % (Auto) 62.5 % Neut # (Auto) 3.61 (1.8-7.7) 10^3/uL Cardiac Studies: No Data to Display
[2023-12-28 13:39] LABS: Alanine Aminotransferase 13 U/L (0-33); Albumin Level 4.2 g/dL (3.5-5.2); Alkaline Phosphatase 102 U/L (35-105); Anion Gap 13.9 (5-19); Aspartate Amino Transferase 18 U/L (0-32); Blood Urea Nitrogen 10 mg/dL (8-23); Calcium 9.5 mg/dL (8.5-10.5); Carbon Dioxide 26 mmol/L (22-29); Chloride 100 mmol/L (98-107); Globulin 2.3 g/dL (1.3-4.6); Glomerular Filtration Rate 56.2 mL/min (90-130); Glucose 174 mg/dL (65-115); Osmolality Calculated 285 mOsm/kg (285-295); Potassium 3.9 mmol/L (3.5-5.1); Sodium 136 mmol/L (136-145); Total Bilirubin 0.3 mg/dL (0.15-1.2); Total Protein 6.5 g/dL (6.6-8.7)
[2023-12-28 14:59] LABS: Add Urine Microscopic? YES; Bilirubin Urine Neg (Negative); Blood Urine 2+ (Negative); Glucose Urine UA Norm (Normal); Ketones Urine Negative (Negative); Leukocyte Esterase Urine Negative (Negative); Nitrate Urine Negative (Negative); Protein Urine Neg (Negative); Urine Appearance Clear (CLEAR); Urine Color Yellow (Yellow); Urobilinogen Urine Norm (Negative); pH Urine 6 (5-7)
[2023-12-28 15:03] LABS: Add Urine Culture? No; Bacteria Urine 1+ /hpf; RBC Urine 0-4 /hpf (0-2); Squamous Epithelial Cell Urine 15-25 /hpf (0-5)
[2024-01-01] VITALS (15 sets, daily range): BP systolic 115–152; BP diastolic 56–76; PULSE 59–82; RESP 16–29; TEMP 36.2–36.6; O2SAT 95–100; BMI 26.5
--- NOTE | 2024-01-01 08:47 | W.PM.OPSUD ---
Surgery/Procedure H&P Update DATE OF PROCEDURE: January 01, 2024 DATE H&P PERFORMED: 12/24/23 H&P UPDATE INFORMATION: I have reviewed H&P completed within last 30 days, I have examined patient prior to procedure and No changes to prior documentation PREOP DIAGNOSIS: Cystocele stage 3, mixed incontinence PLANNED PROCEDURE: Operation Date: 01/01/24 10:10 Proposed Procedures p Anterior colporrhaphy 53360, Sling 23936 N81.10,R32(Not Applicable) - Moose Keita MD s Sling(Not Applicable) - Moose Keita MD
--- NOTE | 2024-01-01 08:49 | P.ANESUD_ITS ---
Pre-Anesthetic Update Pre-Anesthetic Assessment: Date of Surgery/Procedure: 01/01/24 Preop Nuzhat gnosis: Cystocele stage 3, mixed incontinence Proposed Procedure: Operation Date: 01/01/24 10:10 Proposed Procedures p Anterior colporrhaphy 66256, Sling 86309 N81.10,R32(Not Applicable) - Moose Keita MD s Sling(Not Applicable) - Moose Keita MD Any changes to Pre-Anesthetic Assessment?: No Last Intake: 0000 Vitals: Temperature 97.8 F 01/01/24 08:43 Temperature Source Temporal Artery S can 01/01/24 08:43 Pulse Rate 82 01/01/24 08:43 Respiratory Rate 16 01/01/24 08:43 Blood Pressure 124/74 01/01/24 08:43 Blood Pressure Martha n 90 01/01/24 08:43 Pulse Oximetry 99 01/01/24 08:43 Oxygen Delivery Me thod Room Air 01/01/24 08:43 Cardiac Studies: No Data to Display
[2024-01-01] MEDS: sodium chloride 0.9% 1,000 ML 30 ML IV (09:14)
[2024-01-01] MEDS: scopolamine 1.5 Patch 1 PATCH TRANSDERMA (09:14)
[2024-01-01] MEDS: ceFAZolin 2,000 MG in sodium chloride 0.9% (plus) 50 ML 100 MG IV (10:25)
[2024-01-01] MEDS: lidocaine-epi 2% PF 1:200,000 20 mL SDV XX (11:21)
--- NOTE | 2024-01-01 11:57 | PM.OP ---
Operative Report Date of procedure: January 01, 2024 Pre-op diagnosis: Cystocele stage III Mixed urinary incontinence Post-op diagnosis: same Procedure done: Anterior colporrhaphy augmented with allograft. Single incision mid urethral sling Cystoscopy Implants: Coloplast Altis sling Specimens removed/disposition: None Surgeon: Moose Keita MD Estimated blood loss (mL): 25 IV fluids (mL): 1,000 Urine output (mL): 200 Complications: None Procedure: After obtaining informed consent, the patient was taken to the operating room and placed in the supine position, given general anesthesia, and prepped and draped in sterile fashion. The abdomen, vulva and vagina were prepped and draped in a sterile manner. A time out procedure was performed. The anterior vaginal mucosa beneath the midurethra was infiltrated with 0.5% Marcaine with epinephrine. A vertical midline incision was made beneath the midurethra, nearly 1.5 cm length. Careful submucosal dissection was performed bilaterally up to the interior portion of the inferior pubic ramus. The insertion of adductor longus tendon on the patient?s pubic ramus was identified as reference land jose. Palpated the notch along the internal edge of ischiopubic ramus where the adductor longus tendon and the inferior pubic ramus meet. The Altis single incision sling (SIS) was selected. Then the needle of the SIS inserted aiming at the location of this notch. One of the integrated self-fixating tips place onto the needle by sliding it over the end of the needle. The needle/sling assembly was inserted toward the location of identified reference notch making sure that the flat of the handle is perpendicular to the desired path. The needle was tracked along the posterior surface of the ischiopubic ramus until the midline jose on the mesh is approximately at the midline position under the urethra. The needle was removed and the same was repeated on the contralateral side until the appropriate sling tension under the urethra was achieved ensuring that the mesh lays flat. The needle was removed and vaginal incision was closed in a running interlocking fashion with 2-0 Vicryl. Then the vaginal mucosa was scored in the midline with the Bovie approximately 1 cm medial to the urethral meatus to 1 cm distal to the cervix. This vaginal mucosa was then undermined and then incised in the midline with the Metzenbaum scissors. The lateral aspects of the vaginal mucosa were then grasped with the Allis clamps and the vaginal mucosa was then dissected off the underlying fascia with the Metzenbaum scissors. Again, there was noted to be quite a bit of oozing at the incision, which was controlled with cautery. After adequate dissection was performed, bilaterally. An Coloplast dermis allograft modified at time of application to fit spacea, 3x3 cm piece . The allograft was placed in front of cystocele ready to be implanted facing the vagina mucosa. Suture is placed at distal end of graft and placed towards vaginal cuff. Final suture is placed on proximal portion of the graft to complete the placement overlying the bladder. Then Interrupted vertical mattress sutures of 0 Vicryl were used to elevate the cystocele superiorly. The excessive vaginal mucosa was then trimmed with the Metzenbaum scissors and the vaginal mucosa was then reapproximated in the running interlocking fashion with 2-0 Vicryl. Bludigo (indigocarmine) was given IV Then the Young catheter was removed and cystoscope was inserted. The bladder was filled with sterile water. Complete evaluation of the bladder mucosa was performed noting no lacerations, dimpling, tears, bleeding of the mucosa or muscular layers. Both ureteral orifices were identified. Prompt excretion of blue urine from both ureteral orifices was noted. Cystoscope was withdrawn. The Young catheter was replaced. Excellent hemostasis was obtained. A vaginal pack is placed overnight as postoperative support for the vaginal tissues after graft placement and closure of vaginal incisions. Sponge, lap, needle, and instrument counts were correct times three. The patient was taken to the recovery room, awake and in stable condition.
--- NOTE | 2024-01-01 12:50 | PC.NURSE ---
1235 - Notified ABE Lyons during pt hand off that pt has vaginal packing
[2024-01-01] MEDS: ketorolac 30 mg/mL INJ IVP ×2 (13:02→19:24)
[2024-01-01] MEDS: dextrose 5%-lactated ringers 1,000 ML 125 ML IV ×2 (13:02→22:44)
--- NOTE | 2024-01-01 15:10 | ANE.PACU2 ---
Inpatient post-anesthesia follow up: Vital signs: Temperature 97.7 F Pulse Rate 67 Respiratory Rate 29 Blood Pressure 138/76 Pulse Oximetry 98 Oxygen Delivery Me thod Room Air Oxygen Flow Rate Fraction of Inspir ed Oxygen Hydration adequate: Yes Nausea and vomiting: No Pain level: 1 Mental status: Baseline Additional Comments: no apparent anesthetic complications noted.
[2024-01-01] MEDS: naltrexone hcl 50 mg Tablet 25 MG PO (17:34)
[2024-01-01] MEDS: docusate sodium 100 mg Capsule PO (17:34)
[2024-01-01] MEDS: gabapentin 400 mg Capsule 800 MG PO (17:34)
[2024-01-01] MEDS: venlafaxine ER (24HR) 75 mg Capsule PO (19:24)
[2024-01-01] MEDS: trazodone 50 mg Tablet PO (20:38)
[2024-01-02] MEDS: ketorolac 30 mg/mL INJ IVP (01:30)
[2024-01-02 04:19] VITALS: BP 112/63; PULSE 68; RESP 16; TEMP 36.6; O2SAT 97
[2024-01-02 05:17] LABS: Hematocrit 32.8 % (36-47); Mean Corpuscular HGB Conc 32.9 g/dL (30-55); Mean Corpuscular Hemoglobin 30.2 pg (27-33); Mean Corpuscular Volume 91.6 fl (85-98); Mean Platelet Volume 8.9 fL (7.4-10.4); Platelet Count 275 10^3/cmm (157-399); Red Blood Count 3.58 10^6/uL (3.85-5.65); Red Cell Distribution Width 14.1 % (12.1-15.1); White Blood Count 5.24 10^3/uL (3.29-11.43)
--- NOTE | 2024-01-02 10:59 | PM.OBGYDC ---
Discharge Providers TRIM TECHNICIAN Date of Admission: 01/01/24 12:15 Date of Discharge: 01/02/24 Attending Provider at Admission: Moose Keita MD Attending Provider at Discharge: Moose Keita MD Primary Care Provider: Rodo Paul MD Reason for Visit Reason for Visit: N81.10 Hospital Course Hospital Course Mrs. Fitzgerald 63-year-old female diagnosed with cystocele stage III and a history of mixed incontinence was admitted for planned anterior colporrhaphy with single incision mid urethral sling. The procedures were performed without complication. Overnight observation has been uneventful. She is afebrile hemodynamically stable postoperative day 1. Tolerating diet well. Ambulating without difficulty. Her PVR was within normal limits. she was counseled regarding pelvic rest for 6 weeks (no sex, no tampons, no vaginal douches). Return to the emergency room if any fever, increased bleeding or pain. Physical Exam Narrative: GA: Alert and oriented ?3. HEENT: WNL. Heart: Regular rate and rhythm. Lungs: Clear to auscultation bilaterally. Abdomen: Bowel sounds present, nontender, minimal tenderness, incision clean and dry, no redness, pain or edema. ODD TICKET CLERK: No bleeding. Extremities: No edema, no cyanosis, no calves pain. Urinary Catheter Management: Young: Cath Placed During This Visit: yes, but has since been removed by the nurse Reason for Continuing Indwelling Catheter: Decision to DC Catheter Urinary Catheter Date of Insertion: 01/01/24 Urinary Catheter Time of Insertion: 10:51 Date Urinary Catheter Removed: 01/02/24 Time Urinary Catheter Discontinued: 05:00 History History History 2 Term 2 0 Miscarriages/Ectopic 0 Living Children 1 Discharge Data Studies Completed and Pending Laboratory Results WBC 5.24 10^3/uL (3.29-11.43) 01/02/24 05:00 RBC 3.58 10^6/uL (3.85-5.65) L 01/02/24 05:00 Hgb 10.80 g/dL (11.27-16.99) L 01/02/24 05:00 Hct 32.8 % (36-47) L 01/02/24 05:00 MCV 91.6 fl (85-98) 01/02/24 05:00 MCH 30.2 pg (27-33) 01/02/24 05:00 MCHC 32.9 g/dL (30-55) 01/02/24 05:00 RDW 14.1 % (12.1-15.1) 01/02/24 05:00 Plt Count 275 10^3/cmm (157-399) 01/02/24 05:00 MPV 8.9 fL (7.4-10.4) 01/02/24 05:00 Neut % (Auto) 62.5 % 12/28/23 13:05 Lymph % (Auto) 30.3 % 12/28/23 13:05 [place] % (Auto) 4.8 % 12/28/23 13:05 Eos % (Auto) 1.4 % 12/28/23 13:05 Baso % (Auto) 0.7 % 12/28/23 13:05 Neut # (Auto) 3.61 10^3/uL (1.8-7.7) 12/28/23 13:05 Lymph # (Auto) 1.8 10^3/uL (0.8-4.8) 12/28/23 13:05 [place] # (Auto) 0.3 10^3/uL (0.2-0.9) 12/28/23 13:05 Eos # (Auto) 0.1 10^3/uL (0.0-0.8) 12/28/23 13:05 Baso # (Auto) 0.0 10^3/uL (0.0-0.1) 12/28/23 13:05 Nucleated RBC % (auto) 0 % 12/28/23 13:05 Nucleated RBCs # 0.0 /100WBC 12/28/23 13:05 Sodium 136 mmol/L (136-145) 12/28/23 13:05 Potassium 3.9 mmol/L (3.5-5.1) 12/28/23 13:05 Chloride 100 mmol/L (98-107) 12/28/23 13:05 Carbon Dioxide 26 mmol/L (22-29) 12/28/23 13:05 Anion Gap 13.9 (5-19) 12/28/23 13:05 BUN 10 mg/dL (8-23) 12/28/23 13:05 Creatinine 1.0 mg/dL (0.5-0.9) H 12/28/23 13:05 GFR Calculation 56.2 mL/min (90-130) L 12/28/23 13:05 Glucose 174 mg/dL (65-115) H 12/28/23 13:05 Calculated Osmolality 285 mOsm/kg (285-295) 12/28/23 13:05 Calcium 9.5 mg/dL (8.5-10.5) 12/28/23 13:05 Total Bilirubin 0.3 mg/dL (0.15-1.2) 12/28/23 13:05 AST 18 U/L (0-32) 12/28/23 13:05 ALT 13 U/L (0-33) 12/28/23 13:05 Alkaline Phosphatase 102 U/L (35-105) 12/28/23 13:05 Total Protein 6.5 g/dL (6.6-8.7) L 12/28/23 13:05 Albumin 4.2 g/dL (3.5-5.2) 12/28/23 13:05 Globulin 2.3 g/dL (1.3-4.6) 12/28/23 13:05 Urine Color Yellow (Yellow) 12/28/23 13:05 Urine Appearance Clear (CLEAR) 12/28/23 13:05 Urine pH 6 (5-7) 12/28/23 13:05 Ur Specific [place] 1.010 (1.005-1.030) 12/28/23 13:05 Urine Protein Neg (Negative) 12/28/23 13:05 Urine Glucose (UA) Norm (Normal) 12/28/23 13:05 Urine Ketones Negative (Negative) 12/28/23 13:05 Urine Blood 2+ (Negative) H 12/28/23 13:05 Urine Nitrate Negative (Negative) 12/28/23 13:05 Urine Bilirubin Neg (Negative) 12/28/23 13:05 Urine Urobilinogen Norm mg/dL (Negative) 12/28/23 13:05 Ur Leukocyte Esterase Negative (Negative) 12/28/23 13:05 Urine RBC 0-4 /hpf (0-2) H 12/28/23 13:05 Urine WBC None /hpf (0-5) 12/28/23 13:05 Ur Squamous Epith Cells 15-25 /hpf (0-5) H 12/28/23 13:05 Amorphous Sediment Not Reportable 12/28/23 13:05 Urine Bacteria 1+ /hpf (NONE) H 12/28/23 13:05 Blood Type O Negative 01/01/24 09:15 Rho(D) Type Negative 01/01/24 09:15 Antibody Screen Negative 01/01/24 09:15 Vitals Last Vital Signs Temp 98 F 01/02/24 04:19 Pulse 68 01/02/24 04:19 Resp 16 01/02/24 04:19 BP 112/63 01/02/24 04:19 Pulse Ox 97 01/02/24 04:19 O2 Del Method Room Air 01/02/24 04:19 Results Labs OB ([facility]): Blood Type O Negative 01/01/24 Antibody Screen Negative 01/01/24 Hct 32.8 % (36-47) L 01/02/24 Hgb 10.80 g/dL (11.27-16.99) L 01/02/24 Rho(D) Type Negative 01/01/24 Plt Count 275 10^3/cmm (157-399) 01/02/24 TSH 1.45 uIU/mL (0.27-4.20) 06/12/22 Hemoglobin A1c 5.7 % (4.0-6.0) 03/09/22 Micro Urine Specimen 05/11/22 Discharge Plan Discharge Patient Disposition: Home Condition: Stable Prescriptions: New hydrocodone-acetaminophen 5-325 mg tablet 1 tab PO Q4H PRN (Reason: pain) Qty: 10 0RF acetaminophen 325 mg capsule 325 mg PO Q4H PRN (Reason: fever or postoperative pain) Qty: 60 0RF ibuprofen 800 mg tablet 800 mg PO TID PRN (Reason: pain) Qty: 60 0RF Continued ibuprofen 800 mg tablet 800 mg PO TID PRN (Reason: body pain) Qty: 270 1RF Rx Instructions: take with food/meal melatonin 10 mg tablet 15 mg PO DAILY Qty: 90 3RF trazodone 50 mg tablet 50 mg PO QPM estradiol 1 mg tablet 1 mg PO DAILY Qty: 90 3RF levothyroxine 75 mcg capsule 75 mcg PO DAILY Qty: 90 5RF omeprazole 20 mg capsule,delayed release(DR/EC) 20 mg PO DAILY Qty: 90 1RF gabapentin 800 mg tablet 800 mg PO QID Qty: 360 1RF lubiprostone 24 mcg capsule 24 mcg PO BID Qty: 180 1RF Rx Instructions: TAKE 1 CAPSULE BY MOUTH TWO TIMES A DAY FOR CONSTIPATION venlafaxine 75 mg capsule,extended release 24hr 75 mg PO BID Qty: 180 1RF progesterone micronized 100 mg capsule 100 mg PO QAM 90 Days Qty: 90 1RF Myrbetriq 25 mg tablet extended release 24 hr 25 mg PO DAILY Rx Instructions: TAKE 1 TABLET BY MOUTH ONCE DAILY naltrexone 50 mg tablet 25 mg PO BID bupropion HCl [Wellbutrin XL] 300 mg tablet extended release 24 hr 300 mg PO QAM Discharge Orders: Discharge Order (Routine); Ordered 01/02/24 Ordered By: Moose Keita Referrals: Moose Keita MD [Physician] - 2 weeks Discharge Diet: Usual diet Discharge Activity: Limit activity as instructed Patient Instructions: Hydrocodone/Acetaminophen (By mouth) (Vicodin, Asher, Lortab), Cystoscopy (GEN), Bladder Sling for Women (GEN), Anterior Vaginal Repair (GEN), Opioid Safety Activity Restrictions/Additional Instructions: 1. Please call [facility] on next working day to make your post-operative appointment in 2 weeks. 2. Please stay home until you come back to the clinic on first post-hospatilization check up. 3. Please follow instructions on your medications CAREFULLY. 4. If you have abdominal incision, do not cover it unless dressing is necessary because of drainage. OK to shower, but avoid bath. Leave steri-strips until they fall off. If they are still on one week after surgery, you may remove them. 5. If you had vaginal surgery or vaginal repair, Dr. Keita may instruct you to take SITZ bath. 6. Yellow, blood tinged odorous vaginal discharge is usually normal after hysterectomy or vaginal surgeries. 7. No SEXUAL INTERCOURSE, tampons, or douches until you are completely released from the post-operative care. 8. Avoid constipation by eating right and maybe using some Metamucil or Milk of Magnesia. 9. All prescription refills are given during the working hours. Please do no wait till it runs out. Call the clinic at [phone] before your medication runs out. The clinic will get in touch with your doctor to prescribe medications if necessary. 10. Please remain within 40 mile radius from our hospital because emergencies do happen now and then during the post-operative period. 11. If you have stairs at home, take one step at a time slowly and minimize the number of trips. It helps to stay in one floor for the next few days. No lifting except what you can lift by one hand until you are released from the post-operative care. 12. Driving is discouraged until you are well healed. It may be 3-4 weeks before you feel strong enough to drive. You should be able to turn and look through the rear window without pain and you should be able to push the brake pedal very hard without pain before you drive. No fast rules, but SAFETY should be your primary concern. DO NOT drive if you are on sedating medications such as narcotics. 13. Call the clinic (during working hours) to make urgent appointment or go to the Emergency room, if any of the following occurs: i. Vaginal bleeding becomes heavy, more than a period. ii. Incision becomes red and sore, or drains pus. iii. Your TEMPERATURE is over 100.4F or you have chill. iv. IV site becomes red and swollen (a little ``knot?? is usually OK) v. Persistent nausea and vomiting vi. Persistent constipation or diarrhea vii. Rash or allergic reaction to medications. Discharge Attestations TRIM TECHNICIAN Time Spent in Discharge Care*: greater than 30 min Coding Level of Care Code Acute Code for Chg Isael
[2024-01-02 11:00] VITALS: BP 108/70; PULSE 74; RESP 16; TEMP 36.6
[2024-01-02 12:55] VITALS: BP 108/70; PULSE 74; RESP 16; TEMP 36.6
== END 2024-01-02 12:55 | disposition home or self-care (01) ==
LOC: OBGYN 12:15
PROVIDERS: Anesthesiology; Admitting Provider Obstetrics & Gynecology; PCP Family Medicine; Visit Provider Obstetrics & Gynecology
PROC: 0JQC0ZZ Repair Pelvic Region Subcutaneous Tissue and Fascia, Open Approach (ICD-10-PCS; CPT 57240; principal; 2024-01-01 10:00)
PROC: (CPT 57288; 2024-01-01 10:00)
PROC: 0TJB8ZZ Inspection of Bladder, Via Natural or Artificial Opening Endoscopic (ICD-10-PCS; CPT 52000; 2024-01-01 10:00)
DX: N81.10 Cystocele, unspecified (principal); N39.46 Mixed incontinence; K21.9 Gastro-esophageal reflux disease without esophagitis; E03.9 Hypothyroidism, unspecified; E78.5 Hyperlipidemia, unspecified; N18.2 Chronic kidney disease, stage 2 (mild); M79.7 Fibromyalgia
CPT/HCPCS: 57240; 57288; 36415; 51798; 80053; 81001; 85025; 85027; 86850; 86900; C1713; C1762; G0378; J0690; J1885; J2704; J3010; J3490; J7030; J7121

== ENCOUNTER → 2024-05-19 09:23 | Outpatient (BNVA) | payer MEDICARE, SELFPAY | PROVIDERS: PCP Family Medicine; Visit Provider Nurse Practitioner Family | DX: D22.4 Melanocytic nevi of scalp and neck (principal); L81.4 Other melanin hyperpigmentation; L57.8 Other skin changes due to chronic exposure to nonionizing radiation; L23.89 Allergic contact dermatitis due to other agents; L82.1 Other seborrheic keratosis; L21.8 Other seborrheic dermatitis | CPT/HCPCS: 99214 ==

== ENCOUNTER → 2024-09-08 09:33 | Outpatient (BNVA) | payer MEDICARE, SELFPAY | PROVIDERS: PCP Family Medicine; Visit Provider Nurse Practitioner Family | DX: L30.9 Dermatitis, unspecified (principal); L81.4 Other melanin hyperpigmentation; L57.8 Other skin changes due to chronic exposure to nonionizing radiation | CPT/HCPCS: 11104; 99213 ==

== ENCOUNTER → 2024-09-18 08:00 | Outpatient (BNVA) | payer MEDICARE, SELFPAY | PROVIDERS: PCP Family Medicine; Visit Provider Nurse Practitioner Family | DX: T88.7XXA Unspecified adverse effect of drug or medicament, initial encounter (principal); X58.XXXA Exposure to other specified factors, initial encounter; L81.4 Other melanin hyperpigmentation | CPT/HCPCS: 99213 ==

== ENCOUNTER 2024-10-17 10:52 | Outpatient (CLI) | payer MEDICARE, SELFPAY ==
--- NOTE | 2024-10-17 | MM_ITS ---
WS: [id number] BILATERAL SCREENING DIGITAL TOMOSYNTHESIS MAMMOGRAM WITH CAD HISTORY: ANNUAL SCREENING COMPARISON: 08/31/2021, 09/24/2023, 09/22/2022 Bilateral CC and MLO views with tomosynthesis and synthetic mammography submitted. Computer aided det ection analyzed. Breast composition: The breasts are heterogeneously dense, which may obscure small masses. No suspici ous masses, microcalcifications or architectural distortion. Scattered asymmetries within each breast have been present on prior examinations. No new area of distortion or grouping of calcification. MM/MM [facility] tomosynthesis [id number] IMPRESSION: BI-RADS: 2 - Benign FOLLOW UP: 1 Year Follow-up
== END 2024-10-17 10:53 | disposition home or self-care (01) ==
LOC: RAD 10:53
PROVIDERS: PCP Family Medicine; Visit Provider Family Medicine
DX: Z12.31 Encounter for screening mammogram for malignant neoplasm of breast (principal); R92.333 Mammographic heterogeneous density, bilateral breasts; N64.89 Other specified disorders of breast
CPT/HCPCS: 77063; 77067

== ENCOUNTER → 2024-11-10 10:27 | Outpatient (BNVA) | payer MEDICARE, SELFPAY | PROVIDERS: PCP Family Medicine; Visit Provider Nurse Practitioner Family | DX: L81.4 Other melanin hyperpigmentation (principal) | CPT/HCPCS: 99213 ==

== ENCOUNTER 2025-07-06 11:58 | Outpatient (CLI) | payer MEDICARE, SELFPAY ==
[2025-07-06 12:13] VITALS: BMI 21.8
--- NOTE | 2025-07-06 12:15 | ECG_ITS ---
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 Baseline heart rate was 98 beats per minute. Baseline blood pressure was 92/66 millimeters of mercury. Target heart rate was 157 beats per minute. Maximum heart rate achieved was 141, which was 89 % of the target heart rate. Maximum blood pressure was 159/79 millimeters of mercury. Total exercise time was 6 minutes 39 seconds. Maximum METs achieved was 10.2, maximum VO2 was 35. The reason for ending the test was maximum effort achieved. The patient complained of shortness of breath during the stress test, which then resolved at the end of the test. ELECTROCARDIOGRAM: BASELINE: Showed sinus rhythm, normal axis, no significant ST-T changes at the baseline noted. EXERCISE: At the peak exercise level, moderate inferolateral ST-T depression noted RECOVERY: During the recovery period, heart rate dropped appropriately. Inferolateral ST-T changes in the second minutes of recovery s improved CONCLUSION: 1. Exercise capacity fair 2. Heart rate response was appropriate. 3. Blood pressure response was appropriate. 4. Symptoms not suggestive of ischemia. 5. Electrocardiogram portion of the stress test was equivocal for ischemia. 6. Nuclear scan will be documented separately. not Electronically Signed On 07-06-2025 19:02:45 CDT by JESSICA VERA [email or web address]
[2025-07-06 12:56] VITALS: BP 115/84; PULSE 89
== END 2025-07-06 11:59 | disposition home or self-care (01) ==
LOC: CDL 12:00
PROVIDERS: PCP Family Medicine; Visit Provider Family Medicine
DX: R07.9 Chest pain, unspecified (principal)
CPT/HCPCS: 93017

== ENCOUNTER 2025-07-06 19:57 | Outpatient (CLI) | payer MEDICARE, SELFPAY | END 2025-07-06 19:58 | disposition home or self-care (01) | LOC: SLEEP 19:58 | PROVIDERS: PCP Family Medicine; Referring Provider Specialist; Visit Provider Internal Medicine Pulmonary Disease | DX: G47.33 Obstructive sleep apnea (adult) (pediatric) (principal); R06.83 Snoring | CPT/HCPCS: 95810 ==

== ENCOUNTER → 2025-08-18 15:52 | Outpatient (BNVA) | payer MEDICARE, SELFPAY | PROVIDERS: PCP Family Medicine; Referring Provider Family Medicine; Visit Provider Internal Medicine Cardiovascular Disease | DX: R07.89 Other chest pain (principal); I95.1 Orthostatic hypotension; R06.09 Other forms of dyspnea; R07.9 Chest pain, unspecified; R06.02 Shortness of breath | CPT/HCPCS: 93005; 99204 ==

== ENCOUNTER 2025-09-09 07:40 | Outpatient (CLI) | payer MEDICARE, SELFPAY ==
--- NOTE | 2025-09-09 | ECG_ITS ---
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 Interpretive Statements Procedure: A total of 0.4 mg of Lexiscan was infused over 20 seconds. The stress phase was continued for a total of 5 minutes. Sestamibi was injected 20 seconds after the Lexiscan infusion. Findings: Baseline blood pressure 121/67 with a heart rate of 71. During the stress test the patient's blood pressure decreased to 111/67 and heart rate increased to a maximum of 8088 bpm. At the end of recovery blood pressure was 113/66 with a heart rate of 80 bpm. The resting baseline EKG showed normal sinus rhythm with no ST-T wave abnormality. Possible old septal and lateral infarctions present. no ST and T wave changes from baseline. Conclusion: 1. Normal EKG response to Lexiscan infusion 2. No Lexiscan induced chest pain or cardiac arrhythmia. 3. Normal blood pressure and heart rate response. 4. Nuclear myocardial perfusion scan pending; see separate report. Electronically Signed On 09-09-2025 18:41:52 CDT by Cooper Austin M.D. [email or web address]
--- NOTE | 2025-09-09 08:26 | NMCV_ITS ---
NM jyothi perf SPECT r/s* [id number] Dee Fitzgerald Age: 64 Gender: F : 1960 Exam Date: 09/09/2025 09:29 Ordering Phys: Cooper Austin MD ([email or web address]) Technologist: EMERSON Sharp Exam Location: [facility] Indications: cp STRESS TEST Please see separate stress test report in [facility] for full findings IMAGE PROTOCOL Rest/Stress 1 Lexiscan Day Radiopharmaceutical Dose (mCi) Administration Site Administered by Rest: Tc-99m 10.5 IV EMERSON Duffy Sestamibi Stress:Tc-99m 32.3 IV EMERSON Sharp Sestamiholly Rest: 09/09/2025 60 Discovery 630 Stress: 09/09/2025 30 Discovery 630 0.4mg Lexiscan. Images obtained in supine and prone position. SPECT RESULTS Technical Quality: Good Raw Data Analysis: Normal Image Corrections: No attenuation or motion correction applied Summed Stress Score: 6 Summed Rest Score: 12 Summed Difference Score: 0 PERFUSION FINDINGS Artifact is present in the apical inferior wall segment. No evidence of infarction or ischemia. FUNCTIONAL RESULTS (calculated via Gated SPECT) Stress Image LV EF (%): 70 Stress EDV (mL):84 TID: 1.47 Stress ESV (mL):25 FUNCTIONAL FINDINGS: There is normal left ventricular systolic function. IMPRESSIONS Myocardial perfusion imaging is negative for ischemia and infarction. Artifact is present in the apical inferior wall segment. Normal left ventricular cavity size and systolic function, EF 70%. Cooper Austin MD, FACC (Electronically Signed) Final Date: 09 September 2025 17:49 S
[2025-09-09 08:30] VITALS: BMI 20.7
[2025-09-09 10:20] VITALS: BP 113/66; PULSE 80
== END 2025-09-09 07:41 | disposition home or self-care (01) ==
LOC: RAD 08:23 → CDL 08:26
PROVIDERS: PCP Family Medicine; Visit Provider Internal Medicine Cardiovascular Disease
DX: R06.02 Shortness of breath (principal); R07.9 Chest pain, unspecified; I21.19 ST elevation (STEMI) myocardial infarction involving other coronary artery of inferior wall
CPT/HCPCS: 36415; 78452; 93017; 93306; 96374; A9500; J2785

== ENCOUNTER 2025-10-20 09:08 | Outpatient (CLI) | payer MEDICARE, SELFPAY ==
--- NOTE | 2025-10-20 09:14 | MM_ITS ---
WS: [id number] BILATERAL 3D TOMOSYNTHESIS DIGITAL SCREENING MAMMOGRAPHY WITH CAD CLINICAL INFORMATION: SCREENING HISTORY: Screening mammogram. No current complaints. COMPARISON: 2023 TECHNIQUE: Bilateral CC and MLO views. FINDINGS: The breasts are composed of heterogeneous fibroglandular density tissue, which can limit the detection of small underlying mass lesions. No suspicious mass, asymmetry, calcifications, or architectural distortion. No evidence of malignancy. Lucent centered calcification RIGHT breast MM/MM [facility] tomosynthesis [id number] IMPRESSION: DENSITY: The breasts are heterogeneously dense, which may obscure small masses. BI-RADS: 2 - Benign FOLLOW UP: 1 Year Follow-up Recommend return to annual screening mammography.
== END 2025-10-20 09:09 | disposition home or self-care (01) ==
LOC: RAD 09:08
PROVIDERS: PCP Family Medicine; Visit Provider Family Medicine
DX: I95.9 Hypotension, unspecified (principal); R07.9 Chest pain, unspecified; R06.09 Other forms of dyspnea; Z82.49 Family history of ischemic heart disease and other diseases of the circulatory system
CPT/HCPCS: 77063; 77067; 99214